=== PATIENT | male | born 1970 | race Caucasian/White ===

== ENCOUNTER 2019-04-12 07:29 | Day surgery (SDC) | payer OTHER ==
[2019-04-09 15:54] VITALS: BMI 34.7
--- NOTE | 2019-04-12 07:30 | OP ---
Operative Note - Note: Operative Date: 04/12/19 Pre-Operative Diagnosis: Left medial meniscus tear Operation: Left knee arthroscopy with partial medial meniscectomy Post-Operative Diagnosis: Same as Pre-op Surgeon: Jarrod Ro Engagement Mgr: Alison White Anesthesiologist/PHOTO ENGRAVER: Dejon Moy Anesthesia: General Operative Report Dictated: Yes
[2019-04-12] MEDS ORDERED: PROPOFOL 20 ML ONE ×2 (08:14→09:18)
[2019-04-12] MEDS ORDERED: ONDANSETRON 4 MG/2 ML VIAL ONE (08:14)
[2019-04-12] MEDS ORDERED: DEXAMETHASONE SOD PHOSPHATE 4 MG/1 ML VIAL ONE (08:14)
[2019-04-12] MEDS ORDERED: LIDOCAINE HCL/PF 2% SDV 5ML VIAL ONE (08:14)
[2019-04-12] MEDS ORDERED: MIDAZOLAM HCL 2 MG/2 ML SINGLE DOSE VIAL ONE (08:14)
[2019-04-12] MEDS ORDERED: ceFAZolin SODIUM 1 GM VIAL ONE (09:05)
[2019-04-12] MEDS ORDERED: PROMETHAZINE HCL 25 MG/1 ML VIAL IVPUSH PRN (09:42)
[2019-04-12] MEDS ORDERED: oxyCODONE HCL 5 MG TABLET PO PRN ×2 (09:42)
[2019-04-12] MEDS ORDERED: ONDANSETRON 4 MG/2 ML VIAL IVPUSH PRN (09:42)
[2019-04-12 10:21] VITALS: TEMP 97.5
[2019-04-12 11:24] VITALS: BP 136/78; PULSE 68
--- NOTE | 2019-04-12 11:55 | OP ---
DATE OF OPERATION: 04/12/2019 POSTOPERATIVE DIAGNOSIS: Left knee medial meniscal tear. POSTOPERATIVE DIAGNOSIS: Left knee medial meniscal tear. PROCEDURE: Left knee arthroscopy with partial medial meniscectomy. SURGEON: Jarrod Osman MD DRUG INSPECTOR: Alison White, physician preschool assistant teacher, whose skilled full assistance was necessary for the safe and timely performance of this procedure. ANESTHESIA: General. POSTOPERATIVE CONDITION: Stable. COMPLICATIONS: None. INDICATIONS: This is a pleasant gentleman who had previously underwent knee arthroscopy and had meniscal tear. He was then found to have recurrent meniscal tear. Treatment options were discussed including nonoperative versus operative management. Operative risks were reviewed in detail including bleeding, infection, neurovascular injury, need for further surgery, postoperative pain and stiffness, progression of osteoarthritis. We discussed medical risks such as heart attack, stroke, DVT, PE, and . I addressed the use of perioperative antibiotic and DVT prophylaxis. I reviewed the postoperative rehabilitation protocol. The patient voiced understanding and elected to proceed. DESCRIPTION OF PROCEDURE: Patient was brought to the operating room where general anesthesia was administered. The left lower extremity was then prepped and draped in the usual sterile fashion. A preoperative dose of antibiotics was given, and the usual time-out procedure was performed. The portals then were marked out on the skin. The local anesthetic was injected subcutaneously at the portal sites. An 11 blade was now used to establish a lateral portal. The arthroscope was passed into the knee. Examination of the patellofemoral joint demonstrated high-grade cartilage loss along the lateral patellar facet and [id number]-grade loss along the medial facet. The trochlea had only mild streak wear. Passing the arthroscope into the medial compartment demonstrated some moderate, partial intra-articular loss on the femoral side and mild articular loss on the femoral side. There was recurrent tearing noted of the medial meniscus especially more so toward the posterior horn but also involving the body. Medial portal was established under spinal needle localization. Utilizing a combination of meniscal biters and a shaver, this was debrided down to a stable base. The arthroscope was now passed into the lateral compartment. Here, no meniscal tear was seen. There was only minimal articular wear. At this point, the excess fluid was withdrawn from the joint. The portals were sutured using 3-0 nylon. Sterile dressings were placed. The patient was extubated and transferred to the recovery room in stable condition. JARROD OSMAN M.D. [id number]
== END 2019-04-12 11:30 | disposition home or self-care (01) ==
LOC: FASU 07:29
PROVIDERS: ATTEND Orthopaedic Surgery Sports Medicine
PROC: 0SBD4ZZ Excision of Left Knee Joint, Percutaneous Endoscopic Approach (ICD-10-PCS; principal; 2019-04-12 09:15)
DX: S83.242A Other tear of medial meniscus, current injury, left knee, initial encounter (principal); X58.XXXA Exposure to other specified factors, initial encounter; Y93.9 Activity, unspecified; Y92.9 Unspecified place or not applicable
CPT/HCPCS: 94760